=== PATIENT | male | born 1950 ===

== ENCOUNTER 2017-10-21 11:14 | Emergency (ER) | payer MEDICARE ==
[2017-10-21 11:21] VITALS: BMI 21.9
[2017-10-21 11:22] VITALS: PULSE 75; RESP 17; TEMP 98.3; O2SAT 100
[2017-10-21 11:23] VITALS: BP 156/77
--- NOTE | 2017-10-21 11:41 | C.PDOC ---
History Of Present Illness 67 y/o male with dm presents to ED with erythema and minimal swelling to lateral aspect of his right middle finger x 2 days, not tender. no fevers. no drainage. no trauma to finger. Time Seen by Provider: 10/21/17 11:22 Chief Complaint (Nursing): Finger,Hand,&Wrist History Per: Patient History/Exam Limitations: no limitations Onset/Duration Of Symptoms: Days (2) Current Symptoms Are (Timing): Still Present Severity: None Past Medical History Reviewed: Historical Data, Nursing Documentation, Vital Signs Vital Signs: Last Vital Signs Temp 98.3 F 10/21/17 11:28 Pulse 75 10/21/17 11:28 Resp 17 10/21/17 11:28 BP 156/77 H 10/21/17 11:28 Pulse Ox 100 10/21/17 11:48 - Medical History PMH: Diabetes, HTN Family History: States: Unknown Family Hx - Social History Hx Alcohol Use: Yes Hx Substance Use: No - Immunization History Hx Tetanus Toxoid Vaccination: No Hx Influenza Vaccination: Yes (2015) Hx Pneumococcal Vaccination: Yes (09/2015) Review Of Systems Constitutional: Negative for: Fever, Chills Skin: Positive for: Other (erythema right middle finger) Neurological: Negative for: Weakness, Numbness Physical Exam - Physical Exam Appears: Non-toxic, No Acute Distress Skin: Warm, Dry, Other (mild erythema and minimal swelling to right middle finger lateral and proximal aspect of nail bed, no fluctuance. ) Head: Atraumatic, Normacephalic Extremity: Normal ROM, No Tenderness, Capillary Refill (less than 2 seconds) Extremity: Bilateral: Atraumatic Pulses: Right Radial: Normal Neurological/Psych: Oriented x3, Normal Speech, Normal Cognition ED Course And Treatment O2 Sat by Pulse Oximetry: 100 Disposition Counseled Patient/Family Regarding: Diagnosis, Need For Followup, Rx Given - Disposition Disposition: HOME/ ROUTINE Disposition Time: 11:41 Condition: GOOD Additional Instructions: Por favor tome antibiticos segn lo recetado hasta que se complete. Remoje el dedo medio derecho en agua tibia varias veces al da. Si la hinchazn empeora, regrese a la tima de emergencias; de lo contrario, lorie un seguimiento con valencia m dico la prxima semana. Please take antibiotics as prescribed until completed. Soak right middle finger in warm water several times a day. If swelling worsens, return to ER, otherwise follow up with your doctor next week Prescriptions: Cephalexin [cephalexin] 500 mg PO Q6 #28 cap Instructions: Paronychia (DC) Forms: [facility] (Faroese), General Discharge Instructions Print Language: PAKISTANI - Clinical Impression Clinical Impression: Paronychia of right middle finger
== END 2017-10-21 11:53 | disposition home or self-care (01) ==
LOC: C.ER 11:14
DX: L03.011 Cellulitis of right finger (principal); I10 Essential (primary) hypertension; E11.9 Type 2 diabetes mellitus without complications

== ENCOUNTER 2018-04-14 07:41 | Outpatient (CLI) | payer MEDICARE | END 2018-04-14 07:42 | disposition home or self-care (01) | LOC: C.LAB 07:41 | DX: E11.9 Type 2 diabetes mellitus without complications (principal); I10 Essential (primary) hypertension ==

== ENCOUNTER 2018-04-14 07:48 | Outpatient (CLI) | payer MEDICARE | END 2018-04-14 07:49 | disposition home or self-care (01) | LOC: C.LAB 07:48 | DX: K57.30 Diverticulosis of large intestine without perforation or abscess without bleeding (principal); K44.9 Diaphragmatic hernia without obstruction or gangrene; B96.81 Helicobacter pylori [H. pylori] as the cause of diseases classified elsewhere ==